=== PATIENT | female | born 1955 | race Two or more races ===

== ENCOUNTER 2021-10-24 10:30 | Inpatient (IN) | payer OTHER ==
[~2021-10-24] VITALS: Ht 152.4 cm; Wt 70.3 kg
[2021-10-24] MEDS ORDERED: CRESTOR5 MG PO (13:29)
[2021-10-24] MEDS ORDERED: AVALIDE PO (13:29)
[2021-10-29] MEDS ORDERED: IRBESARTAN-HCT1 EACH (08:18)
[2021-10-29] MEDS ORDERED: DICLOFENAC POTA50 MG (08:19)
[2021-10-29] MEDS ORDERED: OMEGA-3 ACID ETH1 GM (08:57)
== END 2021-11-01 20:50 | DRG 470 ==
LOC: O/R 10-29 05:50 → SURH 10-29 10:30
PROVIDERS: ADMIT Orthopaedic Surgery; ATTEND Orthopaedic Surgery
PROC: 0SRC0J9 Replacement of Right Knee Joint with Synthetic Substitute, Cemented, Open Approach (ICD-10-PCS; principal; 2021-10-29 11:45)
DX: M17.11 Unilateral primary osteoarthritis, right knee (principal); M85.661 Other cyst of bone, right lower leg; Z20.822 Contact with and (suspected) exposure to COVID-19; I10 Essential (primary) hypertension